=== PATIENT | female | born 1995 | race African-American/Black ===

== ENCOUNTER 2023-11-22 10:15 | Emergency (ER) | payer BC ==
[~2023-11-22] VITALS: Ht 177.8 cm; Wt 90.7 kg
[2023-11-22 10:20] VITALS: BP 127/61; PULSE 70; RESP 16; TEMP 98.7; O2SAT 99
[2023-11-22] MEDS ORDERED: IBUPROFEN 400MG TABLET PO ONE (12:15)
== END 2023-11-22 15:45 | disposition left against medical advice (07) ==
LOC: ER 10:30
DX: R68.89 Other general symptoms and signs (principal); Z53.21 Procedure and treatment not carried out due to patient leaving prior to being seen by health care provider
CPT/HCPCS: 99281